=== PATIENT | male | born 1950 | race Caucasian/White ===

== ENCOUNTER 2018-12-08 09:45 | Emergency (ER) | payer MEDICARE, BC ==
[~2018-12-08] VITALS: Ht 180.3 cm; Wt 86.4 kg
[2018-12-08] MEDS ORDERED: normal saline 1000ML IV soln IVB ONE (10:45)
[2018-12-08] MEDS ORDERED: meclizine 12.5mg tablet PO ONE (10:45)
[2018-12-08] MEDS ORDERED: ondansetron/PF 4mg/2ml inj IV ONE ×2 (10:45→13:05)
[2018-12-08 11:41] LABS: BASOPHILS % (AUTO) 0.2 % (0-1); EOSINOPHILS % (AUTO) 0.2 % (0-6); HEMATOCRIT 47.3 % (42.0-52.0); HEMOGLOBIN 16.3 g/dl (14.0-17.9); LYMPHOCYTES # (AUTO) 0.6 X10'3 (1.1-4.8); LYMPHOCYTES % (AUTO) 7.8 % (21-51); MEAN CORPUSCULAR HEMOGLOBIN 31.4 PG (27.0-31.0); MEAN CORPUSCULAR HGB CONC 34.4 g/dL (33.0-36.5); MEAN CORPUSCULAR VOLUME 91.2 FL (78-98); MEAN PLATELET VOLUME 9.4 FL (7.4-10.4); MONOCYTES # (AUTO) 0.4 X10'3 (0-0.9); MONOCYTES % (AUTO) 5.2 % (2-12); NEUTROPHILS # (AUTO) 7.1 X10'3 (1.8-7.7); NEUTROPHILS % (AUTO) 86.6 % (42-75); PLATELET COUNT 223 X10'3 (140-440); RED BLOOD COUNT 5.19 X10'6 (4.70-6.10); RED CELL DISTRIBUTION WIDTH 13.1 % (11.5-14.5); WHITE BLOOD COUNT 8.2 X10'3 (4.5-11.0)
[2018-12-08 11:53] LABS: ALANINE AMINOTRANSFERASE 41 U/L (12-78); ALBUMIN 3.9 G/DL (3.4-5.0); ALBUMIN/GLOBULIN RATIO 1.4 (1.1-1.5); ALKALINE PHOSPHATASE 79 IU/L (46-116); ANION GAP 8 (8-16); ASPARTATE AMINO TRANSFERASE 22 U/L (10-37); BILIRUBIN,TOTAL 0.5 MG/DL (0.1-1.0); BLOOD UREA NITROGEN 15 MG/DL (7-18); BUN/CREATININE RATIO 17.4 (5.4-32.0); CALCIUM 8.9 MG/DL (8.5-10.1); CHLORIDE 107 MMOL/L (99-107); CREATININE 0.86 MG/DL (0.60-1.10); GLUCOSE 138 MG/DL (70-104); SODIUM 140 MMOL/L (135-145); TOTAL CARBON DIOXIDE 25.5 MMOL/L (24-32); TOTAL PROTEIN 6.7 G/DL (6.4-8.2); eGFR 88 ML/MIN
[2018-12-08 12:05] VITALS: BP 151/80
[2018-12-08] MEDS ORDERED: ONDA4TAB6 PO (13:03)
[2018-12-08] MEDS ORDERED: MECL-111 PO (13:03)
[2018-12-08] MEDS ORDERED: DIAZ5TAB PO (13:03)
== END 2018-12-08 13:22 | disposition home or self-care (01) ==
LOC: ER 09:46
DX: H81.399 Other peripheral vertigo, unspecified ear (principal); Z87.891 Personal history of nicotine dependence
CPT/HCPCS: 36415; 80053; 84443; 84484; 85025; 93005; 96374; 96376; 99284; J2405; J7030; J8597

== ENCOUNTER 2025-08-22 08:13 | Day surgery (SDC) | payer MEDICARE, BC ==
[~2025-08-22] VITALS: Ht 177.8 cm; Wt 80.6 kg
[~2025-08-22 08:13] MED LIST: ASPI81TA52 PO; ATOR-2 PO; RIVA2.5T PO
[2025-08-22 08:25] VITALS: BP 168/81; PULSE 60; RESP 16; TEMP 97.6; O2SAT 98
--- NOTE | 2025-08-22 09:08 | ELECTROCARDIOGRAPH REPORT ---
[facility] Test Date: 2025-08-22 Test Time: 08:46:01 Pat Name: KIRK HUTTON Department: PRE/OP CARDIOLOGY Patient ID: [facility]-[id number] Room: Gender: M [employer]: magdy : 1950 Requested By: CONNER CARRILLO Order Number: [id number] Reading MD: Dr. ZEESHAN Main Measurements Intervals [place] Rate: 55 P: 58 AK: 213 QRS: 79 QRSD: 156 T: 64 QT: 479 QTc: 459 Interpretive Statements Sinus bradycardia Borderline prolonged AK interval Right bundle branch block Electronically Signed On 08-22-2025 17:04:[address] ZEESHAN Main Please click the below link to view image of tracing.
[2025-08-22] MEDS ORDERED: propofol inj 20 ML IV ONE ×3 (09:38)
[2025-08-22 09:50] VITALS: BP 90/40; PULSE 66; RESP 14; O2SAT 98
[2025-08-22] MEDS: ringers solution, lacted 1,000 ML IV SCH (09:50)
[2025-08-22 10:00] VITALS: BP 73/36; PULSE 55; RESP 12; O2SAT 99
[2025-08-22 10:10] VITALS: BP 91/45; PULSE 54; RESP 12; O2SAT 99
[2025-08-22 10:20] VITALS: BP 104/49; PULSE 52; RESP 12; O2SAT 100
[2025-08-22 10:30] VITALS: BP 109/90; PULSE 61; RESP 16; O2SAT 98
== END 2025-08-22 10:50 | disposition home or self-care (01) ==
LOC: GI LAB 08:13
PROVIDERS: ATTEND Internal Medicine Gastroenterology
DX: Z12.11 Encounter for screening for malignant neoplasm of colon (principal); K57.30 Diverticulosis of large intestine without perforation or abscess without bleeding; E78.5 Hyperlipidemia, unspecified; I45.10 Unspecified right bundle-branch block; I25.10 Atherosclerotic heart disease of native coronary artery without angina pectoris; I44.0 Atrioventricular block, first degree; I71.20 Thoracic aortic aneurysm, without rupture, unspecified; I73.9 Peripheral vascular disease, unspecified; Z87.891 Personal history of nicotine dependence; Z85.51 Personal history of malignant neoplasm of bladder; Z95.5 Presence of coronary angioplasty implant and graft; Z88.1 Allergy status to other antibiotic agents; Z98.890 Other specified postprocedural states
CPT/HCPCS: 93005; A4615; G0121; J2704; J7120; Z7512; Z7610; 45378